=== PATIENT | female | born 1965 | race Caucasian/White ===

== ENCOUNTER 2016-07-16 18:25 | Emergency (ER) | payer OTHER ==
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
[2016-07-16 18:46] VITALS: BP 128/78; PULSE 77; TEMP 98.1; BMI 29.9
== END 2016-07-16 18:49 | disposition home or self-care (01) ==
LOC: FER 18:25
DX: S13.4XXA Sprain of ligaments of cervical spine, initial encounter (principal); V43.52XA Car driver injured in collision with other type car in traffic accident, initial encounter; Y93.89 Activity, other specified; Y92.410 Unspecified street and highway as the place of occurrence of the external cause
CPT/HCPCS: 99282-25

== ENCOUNTER 2021-05-14 17:37 | Emergency (ER) | payer OTHER ==
[2021-05-14] MEDS ORDERED: AMOX TR/POT CLAV 875MG/125MG TABLETS (FP) PO ONE (18:16)
[2021-05-14] MEDS ORDERED: DIPHTH,PERTUSS(ACELL),TET 0.5 ML DISP.SYRIN IM ONE ×2 (18:17→18:20)
[2021-05-14] MEDS ORDERED: AMOX TR/POT CLAV 875MG/125MG TABLETS (FP) ONE (18:19)
[2021-05-14 18:32] VITALS: BP 142/89; PULSE 82; TEMP 98.3; BMI 26.2
== END 2021-05-14 18:57 | disposition home or self-care (01) ==
LOC: FER 17:37
PROC: 3E0234Z Introduction of Serum, Toxoid and Vaccine into Muscle, Percutaneous Approach (ICD-10-PCS; principal; 2021-05-14)
DX: S60.512A Abrasion of left hand, initial encounter (principal); W55.03XA Scratched by cat, initial encounter
CPT/HCPCS: 90715; 99283-25

== ENCOUNTER 2024-01-08 18:38 | Emergency (ER) | payer OTHER ==
[2024-01-08 19:01] VITALS: BP 131/63; PULSE 70; RESP 20; TEMP 98; BMI 28.3
[2024-01-08] MEDS ORDERED: predniSONE 20 MG TABLET (UD) ONE (19:29)
[2024-01-08] MEDS: predniSONE 20 MG TABLET (UD) PO ONE (19:31)
== END 2024-01-08 19:39 | disposition home or self-care (01) ==
LOC: FER 18:38
DX: S70.361A Insect bite (nonvenomous), right thigh, initial encounter (principal); S70.362A Insect bite (nonvenomous), left thigh, initial encounter; S20.469A Insect bite (nonvenomous) of unspecified back wall of thorax, initial encounter; S10.86XA Insect bite of other specified part of neck, initial encounter; W57.XXXA Bitten or stung by nonvenomous insect and other nonvenomous arthropods, initial encounter
CPT/HCPCS: 99283-25